=== PATIENT | male | born 1955 | race Caucasian/White ===

== ENCOUNTER → 2020-01-12 | Outpatient (CLI) | payer OTHER ==
[~2020-01-12] MED LIST: AIRBORNE GUMMI1 EACH PO; ASA81BEC PO; BLACK ELDERBER1 EACH PO; CARVEDILOL3.125 MG PO; CENTRUM SILVER1 EAC7 PO; COZAAR 25 MG TA25 M1 PO; PROBIOTIC1 EAC7 PO
== END ==
LOC: SJCVCIMAG 07:57
DX: I44.7 Left bundle-branch block, unspecified (principal); R93.1 Abnormal findings on diagnostic imaging of heart and coronary circulation; R06.09 Other forms of dyspnea

== ENCOUNTER → 2020-01-14 | Outpatient (CLI) | payer OTHER ==
[~2020-01-14] VITALS: Ht 185.4 cm; Wt 103.0 kg
[2020-01-14 07:19] VITALS: BP 135/68
[2020-01-14 08:57] LABS: BE(vivo) 0.7 mmol/L (-2 to +3); HCO3 26.6 mmol/L (22.0-26.0); PCO2 VENOUS 47.2 mmHg (41.0-51.0); PO2 VENOUS 46.1 mmHg (35.0-45.0)
[2020-01-14 09:00] LABS: BE(vivo) -0.3 mmol/L (-2 to +3); HCO3 24.8 mmol/L (22.0-26.0); PCO2 42.3 mmHg (35.0-45.0); PO2 132.8 mmHg (80.0-100.0); pH 7.386 (7.360-7.450); sO2 98.6 % (92.0-98.0)
--- NOTE | 2020-01-14 11:40 | CATHLAB ---
[facility] [place] [address] INVASIVE PROCEDURE REPORT Name: YESENIA BRADLEY Room #: REG HAN Mosley#: [id number] Admission: 01/14/20 Attend Phys: Silas Bueno MD Discharge: Date of : 53 Report #: [id number] THIS REPORT FOR: cc: [facility] - Clinic physician unknown [facility] - Clinic physician unknown Silas Bueno MD ~ APPROVED REPORT Study performed: 01/14/2020 08:03:07 Patient Details Patient Status: Out-Patient Room #: The patient is a 64 year-old male Event Personnel Silas Bueno Jitney Driver, Melanie Sim RN RN, Elke Mcleod RTR Monitor, Cam Roach RTR Scrub Procedures Performed Right and Left Heart Cath w/or w/o Coronarie [id number] [facility] Art Access - R femoral artery* Chase Access - R femoral vein Hemostasis with Manual pressure 89807 Initial Mod Sed Same Phys/QHP Gr5y [id number] 55436 Mod Sed Same Phys/QHP Ea 924957 Indication Dyspnea, CardiomyopathyPositive stress test Risk Factors Hypercholesterolemia Procedure Narrative The patient was brought electively to the Cardiac Catheterization Laboratory and was prepped and draped in a sterile manner. The Right Groin^ was infiltrated with 1% Lidocaine subcutaneous anesthesia. A Right Heart Catheterization was performed with a 7 Fr. [place] catheter and pressure were recorded. Cardiac outputs were obtained by the Mary method. A PINNACLE 4FR Sheath #[id number] sheath was inserted into the RFA^. Coronary angiography was performed using coronary diagnostic catheters. The right coronary system was accessed and visualized with a JR4 catheter. The left coronary system was accessed and visualized with a JL4 catheter. The left ventricle was accessed and visualized with a PIGTAIL catheter. Hemostasis was obtained with manual pressure following sheath removal without any complications. The patient tolerated the procedure well and there were no [facility] [address] [place] [address] INVASIVE PROCEDURE REPORT Name: YESENIA BRADLEY Room #: REG [facility]#: [id number] Admission: 01/14/20 Attend Phys: Silas Bueno MD Discharge: Date of : 53 Report #: [id number] complications associated with the procedure. There was no hematoma. Intraoperative Conscious Sedation Sedation start time: 8:13 Case end Time: 9:02 Fentanyl 50 mcg Versed 1 mg Fluoro Time: 3.70 minutes Dose: DAP 5916.00 cGycm2 849 mGy Contrast Type and Amount: Omnipaque 75 ml Coronary Angiography The patient's coronary anatomy is right dominant. Diagnostic Cath Left Main The left main artery appears angiographically normal. LAD The LAD is a moderate size caliber vessel, traversing the anterior wall and terminates at the apex. This vessel appears angiographically normal. Diagonal 1 This is a patent vessel, with no flow-limiting lesions. Diagonal 2 This is a patent vessel, with no flow-limiting lesions. Circumflex This is a patent vessel, with no flow-limiting lesions. OM1 This is a moderate size caliber vessel, appears angiographically normal. Right Coronary The RCA is a dominant vessel, appears angiographically normal. R PDA This is a moderate size caliber vessel, appears angiographically normal. RPLV This is a moderate size caliber vessel, appears angiographically normal. Left Ventriculography The left ventricle is dilated in size with diminished contractility. The left ventricular ejection fraction is estimated to be 35%. Hemodynamics The right atrial mean pressure is 22 mmHg. The right ventricular pressure is 39/11 mmHg. The pulmonary artery pressure is 35/20 mmHg with a mean of 25 mmHg. The mean pulmonary capillary wedge pressure is 24 mmHg. The aortic pressure is 131/72 mmHg with a mean of 94 [facility] [address] [place] [address] INVASIVE PROCEDURE REPORT Name: YESENIA BRADLEY Alex Room #: REG [facility]#: [id number] Admission: 01/14/20 Attend Phys: Silas Bueno MD Discharge: Date of : 53 Report #: [id number]. The left ventricular pressure is 139/12 mmHg with a mean of mmHg. The left ventricular end diastolic pressure is 18 mmHg. PaO2 saturation is 78.10 %. Arterial saturation is 97.80 %. The cardiac output using the Mary method is 6.38 L/min. The cardiac index using the Mary method is 2.82 L/min/m2. Conclusion 1. Nonischemic cardiomyopathy. 2. Angiographically normal coronary arteries. 3. Recommend guideline directed medical therapy. <ELECTRONICALLY SIGNED> By: Silas Bueno MD 01/14/20 1138 1138 1138 Silas Bueno MD /INF
== END | disposition home or self-care (01) ==
LOC: CATH 06:26
PROVIDERS: Internal Medicine Cardiovascular Disease
DX: R94.39 Abnormal result of other cardiovascular function study (principal); R06.00 Dyspnea, unspecified; I42.9 Cardiomyopathy, unspecified; E78.00 Pure hypercholesterolemia, unspecified; Z98.890 Other specified postprocedural states; Z79.899 Other long term (current) drug therapy

== ENCOUNTER → 2020-01-29 | Outpatient (CLI) | payer OTHER | LOC: SJCVC 10:54 | PROVIDERS: ATTEND Internal Medicine Cardiovascular Disease | DX: I44.0 Atrioventricular block, first degree (principal); I44.7 Left bundle-branch block, unspecified; R94.31 Abnormal electrocardiogram [ECG] [EKG]; R60.9 Edema, unspecified; I42.9 Cardiomyopathy, unspecified; M10.9 Gout, unspecified; E78.5 Hyperlipidemia, unspecified; Z79.82 Long term (current) use of aspirin; Z79.899 Other long term (current) drug therapy ==

== ENCOUNTER → 2020-03-31 | Outpatient (CLI) | payer OTHER | LOC: SJCVCIMAG 08:07 | PROVIDERS: ATTEND Internal Medicine Cardiovascular Disease | DX: I07.1 Rheumatic tricuspid insufficiency (principal); I44.7 Left bundle-branch block, unspecified; I44.0 Atrioventricular block, first degree; R94.31 Abnormal electrocardiogram [ECG] [EKG]; I42.9 Cardiomyopathy, unspecified; Z79.899 Other long term (current) drug therapy ==

== ENCOUNTER → 2020-04-19 | Outpatient (CLI) | payer OTHER | LOC: SJCVCIMAG 10:41 → SJCVC 10:41 | PROVIDERS: ATTEND Internal Medicine Cardiovascular Disease | DX: R94.31 Abnormal electrocardiogram [ECG] [EKG] (principal); I44.0 Atrioventricular block, first degree; R00.1 Bradycardia, unspecified; I44.7 Left bundle-branch block, unspecified; I50.22 Chronic systolic (congestive) heart failure; I51.7 Cardiomegaly; I42.8 Other cardiomyopathies; Z79.899 Other long term (current) drug therapy ==

== ENCOUNTER → 2020-05-05 | Outpatient (CLI) | payer OTHER | LOC: LAB 15:02 | PROVIDERS: ATTEND Internal Medicine Cardiovascular Disease | DX: Z01.812 Encounter for preprocedural laboratory examination (principal); Z11.59 Encounter for screening for other viral diseases ==

== ENCOUNTER 2020-05-09 06:33 | Observation (INO) | payer OTHER ==
[~2020-05-09] VITALS: Ht 185.4 cm; Wt 99.8 kg
[2020-05-09] VITALS (11 sets, daily range): BP systolic 115–147; BP diastolic 54–77
[2020-05-09] MEDS ORDERED: VITAMIN C100 MG PO (07:43)
[2020-05-09] MEDS ORDERED: ASA81BEC PO (07:43)
[2020-05-09] MEDS ORDERED: BLACK ELDERBER1 EACH PO (07:44)
[2020-05-09] MEDS ORDERED: CARVEDILOL12.5 MG PO (07:45)
[2020-05-09] MEDS ORDERED: COZAAR 25 MG TA25 MG PO (07:46)
[2020-05-09] MEDS ORDERED: KRILL OIL500 MG PO (07:46)
[2020-05-09] MEDS ORDERED: PROBIOTIC1 EAC7 PO (07:47)
[2020-05-09] MEDS ORDERED: MULTI VITAMIN1 EACH PO (07:48)
[2020-05-09 07:55] LABS: BASOPHILS 0.8 % (0.0-2.0); EOSINOPHILS 7.9 % (0.0-3.0); HEMATOCRIT 41.3 % (42.0-52.0); HEMOGLOBIN 14.2 gm/dL (14.0-18.0); LYMPHOCYTES 29.7 % (24.0-44.0); MCH 30.5 pg (26.0-34.0); MCHC 34.4 g/dL (28.0-37.0); MCV 88.7 fL (80.0-100.0); MONOCYTES 11.6 % (1.0-8.0); PLATELET COUNT 211 thou/uL (150-400); RBC 4.66 mil/uL (4.50-6.00); RDW 13.5 % (10.5-14.5)
[2020-05-09] MEDS ORDERED: COQ1050 MG PO (07:59)
[2020-05-09 08:12] LABS: APTT 27.3 Seconds (24.5-32.8); CALCIUM 8.9 mg/dL (8.5-10.1); POTASSIUM 4.4 mmol/L (3.5-5.1); PROTIME 9.5 Seconds (9.3-11.4)
[2020-05-09 08:20] LABS: TOTAL BILIRUBIN 0.4 mg/dL (0.2-1.0); TOTAL PROTEIN 7.5 g/dL (6.4-8.2)
--- NOTE | 2020-05-09 17:27 | NUR ---
PT CARE ASSUMED APPROX 1345. ASSESSMENTS CHARTED. PT DENIES PAIN AND SOA. VSS. ON BEDREST SO GAIT IS UNASSESSED AT THIS TIME. PT AND SPOUSE ORIENTED TO POC. BOTH DENY QUESTIONS OR CONCERNS REGARDING POC. NO DISTRESS NOTED.
[2020-05-10 00:45] VITALS: BP 133/96
--- NOTE | 2020-05-10 04:13 | NUR ---
Assumed pt care at 1900. Pt is alert and oriented. No sign of distress noted. Pt is stable. Denies pain. Inicision site is clean, dry and intact, arm in immobilizer. Pt is ambulatory. Assesment completed and documented. No acute events overnight. Continue to monitor. No further needs at this time.
[2020-05-10 04:45] VITALS: BP 139/73
[2020-05-10 08:15] VITALS: BP 143/78
[2020-05-10 10:25] VITALS: BP 143/78
--- NOTE | 2020-05-10 10:50 | NUR ---
PT CARE ASSUMED APPROX 0700. ASSESSMENT CHARTED. PT DENIES PAIN AND SOA. VSS. UP WITH STEADY GAIT. DISCHARGING AT THIS TIME. EDUCATION REVIEWED WITH PT AND SPOUSE BY AND ANDERSON. REINFORCED BY THIS NURSE. BOTH SPOUSE AND PT BOTH DENY QUESTIONS OR CONCERNS REGARDING POST HOSPITAL CARES. IV OUT, TELE OFF. WILL ESCORT PT OUT TIMELY.
--- NOTE | 2020-05-11 08:13 | P ---
[facility] [place] [address] PROCEDURE REPORT Name: YESENIA BRADLEY Room #: 213-P [facility] Charlotte Mosley#: [id number] Admission: 05/09/20 Attend Phys: Demarco Bates MD Discharge: 05/10/20 Date of : 53 Report #: [id number] THIS REPORT FOR: cc: Varun Alvarenga MD, [place] S. MD Couchonnal, Luis F. MD ~ CC: Demarco Alvarenga DATE OF SERVICE: 05/09/2020 PROCEDURE: Bi-V ICD implantation. PREOPERATIVE DIAGNOSES: 1. Chronic left ventricular systolic heart failure. 2. Nonischemic cardiomyopathy. 3. [place] Heart functional class 2-3 heart failure symptoms. 4. Left bundle-branch block. HISTORY: The patient is a 64-year-old with a history of chronic left ventricular systolic heart failure due to nonischemic cardiomyopathy with [place] Heart Association functional class 2-3 heart failure symptoms and a left bundle-branch block. He has been on optimal medical therapy and is here for biventricular ICD implantation. ANESTHESIA: The patient underwent MAC anesthesia with no anesthesia related complications. DESCRIPTION OF PROCEDURE: The patient underwent informed consent. We discussed the details of the procedure including the risks, which include but not limited to bleeding, infection, vascular damage, cardiac perforation and pneumothorax. He understood these risks and is willing to proceed. The patient was brought to the EP laboratory in a fasting and sedated state, prepped and draped in a sterile fashion. He underwent a venogram showing patency of left axillary vein and received IV antibiotics. Next, lidocaine was injected below the level of left clavicle. Incision was made, pocket was created over the prepectoral fascia and access was obtained 3 times to left axillary vein using the extrathoracic approach. Next, sheaths were positioned using the modified Seldinger technique. Next, under fluoroscopy, an ICD lead was placed in the right ventricular apex and an atrial lead was placed in the right atrial appendage both with adequate pacing and sensing thresholds. Leads were sutured to the prepectoral fascia. Next, a coronary sinus guide sheath was placed into the right atrium and we quickly obtained access to the coronary sinus. Of note, the Sunday wire would go into the lateral branch, but I had great difficulties advancing the sheath as there was a tortuosity at the [address] [address] PROCEDURE REPORT Name: YESENIA BRADLEY Room #: 213-P YUNG Mosley#: [id number] Admission: 05/09/20 Attend Phys: Demarco Bates MD Discharge: 05/10/20 Date of : 53 Report #: [id number] coronary sinus ostium. I tried a few times to leave the sheath in position at the os, but when I would try to advance the lead, this would not work. Therefore, I got access again with my [place] wire and then I advanced a quadripolar catheter into the coronary sinus and this allowed me to track this into the coronary sinus guide sheath into the distal third of the CS. From this position, I was able to deliver a quadripolar lead into the posterior lateral branch, which had excellent thresholds and no diaphragmatic stimulation. The sheaths were split, lead remained in place and the LV lead was sutured to the prepectoral fascia. All 3 leads were connected to the device. Tug test performed pocket, irrigated with vancomycin. Pocket closed in 2 layers and surgical glue was placed to outer skin layer. The patient awoke neurologically and hemodynamically intact. No complications and no significant bleeding. The implanted device and leads were [employer] products. The biventricular ICD was Medtronic Compia MRI compatible device, serial #[id number]. The atrial lead was #5076, serial #[id number]. RV lead was #6935, serial #[id number] with a length of 62 cm. The LV lead was a Medtronic model #4598, 88 cm, serial #[id number]. The atrial lead demonstrated P-wave of 2.1 millivolts, pacing impedance 640 ohms and the pacing threshold 0.4 volts at 0.5 milliseconds. The RV lead demonstrated an R-wave of 7 millivolts, pacing impedance of 504 ohms and a pacing threshold of 0.5 volts at 0.5 milliseconds. The LV lead demonstrated a pacing impedance of 1235 ohms and a threshold is 0.5 volts at 0.5 milliseconds, pacing from LV2-LV3. I programmed the device to the DDDR 60-130 mode with an LV offset of 30 milliseconds, which resulted in the nice narrow QRS complex. The VT zone was set at 180-220 beats per minute with 3 rounds of burst followed by 3 rounds of ramp followed by max output shocks. The VF zone was set at greater 220 beats per minute with ATP while charging followed by max output shocks. CONCLUSIONS: 1. Successful Bi-V ICD implantation. 2. Satisfactory atrial, right ventricular and left ventricular pacing and sensing thresholds. <ELECTRONICALLY SIGNED> By: Demarco Bates MD 05/11/20 0813 1311 1523 Demarco Bates MD /nt
== END 2020-05-10 11:30 | disposition home or self-care (01) ==
LOC: CATH 06:33 → 2N 13:55
PROVIDERS: ADMIT Internal Medicine Cardiovascular Disease; ATTEND Internal Medicine Cardiovascular Disease
DX: I42.8 Other cardiomyopathies (principal); I11.0 Hypertensive heart disease with heart failure; I50.22 Chronic systolic (congestive) heart failure; I44.7 Left bundle-branch block, unspecified; Z79.82 Long term (current) use of aspirin; Z79.899 Other long term (current) drug therapy

== ENCOUNTER → 2020-05-24 | Outpatient (CLI) | payer OTHER ==
[~2020-05-24] MED LIST changes: +CARVEDILOL12.5 MG PO; +COQ1050 MG PO; +COZAAR 25 MG TA25 MG PO; +KRILL OIL500 MG PO; +MULTI VITAMIN1 EACH PO; +VITAMIN C100 MG PO
== END ==
LOC: SJCVC 15:09
PROVIDERS: ATTEND Internal Medicine Cardiovascular Disease
DX: Z45.02 Encounter for adjustment and management of automatic implantable cardiac defibrillator (principal); I44.0 Atrioventricular block, first degree; I44.7 Left bundle-branch block, unspecified; Z95.810 Presence of automatic (implantable) cardiac defibrillator; Z79.899 Other long term (current) drug therapy

== ENCOUNTER → 2020-08-09 | Outpatient (CLI) | payer OTHER | LOC: SJCVC 08:59 | PROVIDERS: ATTEND Internal Medicine Cardiovascular Disease | DX: I45.10 Unspecified right bundle-branch block (principal); R94.31 Abnormal electrocardiogram [ECG] [EKG]; M10.9 Gout, unspecified; Z79.82 Long term (current) use of aspirin; Z79.899 Other long term (current) drug therapy ==

== ENCOUNTER → 2020-09-30 | Outpatient (CLI) | payer OTHER | LOC: SJCVCIMAG 08:49 | PROVIDERS: ATTEND Internal Medicine Cardiovascular Disease | DX: I08.8 Other rheumatic multiple valve diseases (principal); R94.31 Abnormal electrocardiogram [ECG] [EKG]; I42.9 Cardiomyopathy, unspecified; R06.00 Dyspnea, unspecified; R60.9 Edema, unspecified; I44.7 Left bundle-branch block, unspecified; Z95.810 Presence of automatic (implantable) cardiac defibrillator; Z79.82 Long term (current) use of aspirin; Z79.899 Other long term (current) drug therapy ==

== ENCOUNTER → 2021-01-13 | Outpatient (CLI) | payer OTHER | LOC: SJCVC 13:26 | PROVIDERS: ATTEND Nurse Practitioner | DX: R94.31 Abnormal electrocardiogram [ECG] [EKG] (principal); I45.2 Bifascicular block; E78.5 Hyperlipidemia, unspecified; M10.9 Gout, unspecified; N40.0 Benign prostatic hyperplasia without lower urinary tract symptoms; I42.9 Cardiomyopathy, unspecified; Z95.810 Presence of automatic (implantable) cardiac defibrillator; Z90.49 Acquired absence of other specified parts of digestive tract; Z98.890 Other specified postprocedural states; Z79.82 Long term (current) use of aspirin; Z79.899 Other long term (current) drug therapy ==

== ENCOUNTER → 2021-03-31 | Outpatient (CLI) | payer OTHER | LOC: SJCVC 09:34 | PROVIDERS: ATTEND Internal Medicine Cardiovascular Disease | DX: R94.31 Abnormal electrocardiogram [ECG] [EKG] (principal); I42.9 Cardiomyopathy, unspecified; I10 Essential (primary) hypertension; R60.9 Edema, unspecified; N40.0 Benign prostatic hyperplasia without lower urinary tract symptoms; I25.10 Atherosclerotic heart disease of native coronary artery without angina pectoris; M10.9 Gout, unspecified; Z98.890 Other specified postprocedural states; Z95.810 Presence of automatic (implantable) cardiac defibrillator; Z90.49 Acquired absence of other specified parts of digestive tract; Z79.82 Long term (current) use of aspirin; Z79.899 Other long term (current) drug therapy ==

== ENCOUNTER → 2021-10-04 | Outpatient (CLI) | payer OTHER | LOC: SJCVCIMAG 07:42 | PROVIDERS: ATTEND Internal Medicine Cardiovascular Disease | DX: R94.31 Abnormal electrocardiogram [ECG] [EKG] (principal); I07.1 Rheumatic tricuspid insufficiency; I42.8 Other cardiomyopathies; R06.00 Dyspnea, unspecified; R60.9 Edema, unspecified; E78.5 Hyperlipidemia, unspecified; M10.9 Gout, unspecified; N40.0 Benign prostatic hyperplasia without lower urinary tract symptoms; Z95.810 Presence of automatic (implantable) cardiac defibrillator; Z79.82 Long term (current) use of aspirin; Z79.899 Other long term (current) drug therapy ==